=== PATIENT | male | born 1960 | race Caucasian/White ===

== ENCOUNTER → 2016-07-18 | Outpatient (CLI) | payer OTHER, BC ==
[2016-07-18 09:14] LABS: ALT 31 U/L (21-72); AST 23 U/L (17-59); Alkaline Phosphatase 55 U/L (38-126); Anion Gap 11 mmol/L; Blood Urea Nitrogen 19 mg/dL (9-20); Calcium 9.9 mg/dL (8.4-10.2); Carbon Dioxide 29 mmol/L (22-30); Chloride 101 mmol/L (98-107); Cholesterol 146 mg/dL (<200); Glucose 111 mg/dL (74-99); HDL Cholesterol 50 mg/dL (40-60); Non-African American GFR(MDRD) >60 (>60 ml/min/1.73 sqM); Potassium 5.2 mmol/L (3.5-5.1); Sodium 141 mmol/L (137-145); Total Bilirubin 0.9 mg/dL (0.2-1.3); Total Protein 7.8 g/dL (6.3-8.2); Triglycerides 93 mg/dL (<150)
== END | disposition home or self-care (01) ==
LOC: LABWHC1 08:10
PROVIDERS: ATTEND Internal Medicine Endocrinology, Diabetes & Metabolism
DX: E10.65 Type 1 diabetes mellitus with hyperglycemia (principal)
CPT/HCPCS: 36415; 80053; 80061; 82043

== ENCOUNTER 2016-08-01 00:05 | Emergency (ER) | payer OTHER, BC ==
--- NOTE | 2016-08-01 00:24 | ED ---
General Adult HPI - General Chief complaint: Altered Mental Status Stated complaint: HYPOGLYCEMIA Time Seen by Provider: 08/01/16 00:23 Source: patient, EMS, RN notes reviewed, old records reviewed Mode of arrival: EMS Limitations: no limitations - History of Present Illness Initial comments: This is a 55-year-old male to the ER for evaluation today. This patient presents for evaluation of altered mental status. Patient unable to give accurate history as to what is going on. History obtained from EMS and patient chart, as well as bystander. Patient does have history of diabetes and ER visits for hypoglycemia. Also states the C patient frequently for episodes of hypoglycemia. Patient is just not responding appropriately this time which she usually does after re-correction of sugar. Patient was found [facility]'s house by neighbor, unknown when symptoms started, at this time patient is a expressive phasic - Related Data Home Medications Medication Instructions Recorded Confirmed INSULIN LISPRO (humaLOG) [humaLOG] 0 units SQ TID 11/28/13 06/14/15 Insulin Glargine,Hum.rec.anlog 44 units SQ DAILY 11/28/13 06/14/15 [Lantus Solostar] Allergies Allergy/AdvReac Type Severity Reaction Status Date / Time No Known Allergies Allergy Verified 06/14/15 07:21 Review of Systems ROS Statement: Those systems with pertinent positive or pertinent negative responses have been documented in the HPI. ROS Other: All systems not noted in ROS Statement are negative. Past Medical History Past Medical History: Diabetes Mellitus History of Any Multi-Drug Resistant Organisms: None Reported Past Surgical History: Orthopedic Surgery Additional Past Surgical History / Comment(s): leg surgery Past Psychological History: No Psychological Hx Reported Smoking Status: Never smoker Past Alcohol Use History: Rare Past Drug Use History: None Reported General Exam - General Exam Comments Initial Comments: NIH of 6, expressive aphasia Limitations: no limitations General appearance: alert, in no apparent distress Head exam: Present: atraumatic, normocephalic, normal inspection Eye exam: Present: normal appearance, PERRL, EOMI. Absent: scleral icterus, conjunctival injection, periorbital swelling ENT exam: Present: normal exam, mucous membranes moist Neck exam: Present: normal inspection. Absent: tenderness, meningismus, lymphadenopathy Respiratory exam: Present: normal lung sounds bilaterally. Absent: respiratory distress, wheezes, rales, rhonchi, stridor Cardiovascular Exam: Present: normal rhythm, tachycardia, normal heart sounds. Absent: systolic murmur, diastolic murmur, rubs, gallop, clicks GI/Abdominal exam: Present: soft, normal bowel sounds. Absent: distended, tenderness, guarding, rebound, rigid Extremities exam: Present: normal inspection, full ROM, normal capillary refill. Absent: tenderness, pedal edema, joint swelling, calf tenderness Back exam: Present: normal inspection Neurological exam: Present: alert, oriented X3, CN II-XII intact Psychiatric exam: Present: normal affect, normal mood Skin exam: Present: warm, dry, intact, normal color. Absent: rash Course Vital Signs 08/01/16 08/01/16 00:06 01:30 Temperature 98.8 F Pulse Rate 105 H 108 H Respiratory 20 16 Rate Blood Pressure 184/86 170/79 O2 Sat by Pulse 97 98 Oximetry - Reevaluation(s) Reevaluation #1: 08/01/16 03:15 Patient having complete resolution of aphasia, no expressive aphasia, patient feels normal like to go home EKG Findings - EKG Comments: EKG Findings:: EKG shows sinus tachycardia rate 103, VA 134, QRS 88, QTC 424 Medical Decision Making - Medical Decision Making 55-year-old ER for evaluation of hypoglycemia, altered mental status. Upon resolution of her glycemia patient's symptoms are improved, patient alert and talking appropriately patient has any be discharged home and will be discharged home - Lab Data Result diagrams: 08/01/16 01:13 08/01/16 01:13 Lab Results 08/01/16 08/01/16 08/01/16 Range/Units 00:12 01:13 01:13 WBC 9.6 (3.8-10.6) k/uL RBC 4.39 (4.30-5.90) m/uL Hgb 14.8 (13.0-17.5) gm/dL Hct 44.3 (39.0-53.0) % MCV 101.0 H (80.0-100.0) fL MCH 33.8 (25.0-35.0) pg MCHC 33.5 (31.0-37.0) g/dL RDW 12.5 (11.5-15.5) % Plt Count 196 (150-450) k/uL Neutrophils % 82 % Lymphocytes % 10 % Monocytes % 6 % Eosinophils % 0 % Basophils % 0 % Neutrophils # 7.9 H (1.3-7.7) k/uL Lymphocytes # 0.9 L (1.0-4.8) k/uL Monocytes # 0.6 (0-1.0) k/uL Eosinophils # 0.0 (0-0.7) k/uL Basophils # 0.0 (0-0.2) k/uL PT 10.9 (9.0-12.0) sec INR 1.1 (<1.1) APTT 24.6 (22.0-30.0) sec Sodium (137-145) mmol/L Potassium (3.5-5.1) mmol/L Chloride (98-107) mmol/L Carbon Dioxide (22-30) mmol/L Anion Gap mmol/L BUN (9-20) mg/dL Creatinine (0.66-1.25) mg/dL Est GFR (MDRD) Af Amer (>60 ml/min/1.73 sqM) Est GFR (MDRD) Non-Af (>60 ml/min/1.73 sqM) Glucose (74-99) mg/dL POC Glucose (mg/dL) 188 H (75-99) mg/dL POC Glu Account Executive ID Claire Thrasher Calcium (8.4-10.2) mg/dL Phosphorus (2.5-4.5) mg/dL Magnesium (1.6-2.3) mg/dL Total Bilirubin (0.2-1.3) mg/dL AST (17-59) U/L ALT (21-72) U/L Alkaline Phosphatase (38-126) U/L Total Creatine Kinase (55-170) U/L CK-MB (CK-2) (0.0-2.4) ng/mL CK-MB (CK-2) Rel Index Troponin I (0.000-0.034) ng/mL Total Protein (6.3-8.2) g/dL Albumin (3.5-5.0) g/dL 08/01/16 08/01/16 08/01/16 Range/Units 01:13 01:13 01:16 WBC (3.8-10.6) k/uL RBC (4.30-5.90) m/uL Hgb (13.0-17.5) gm/dL Hct (39.0-53.0) % MCV (80.0-100.0) fL MCH (25.0-35.0) pg MCHC (31.0-37.0) g/dL RDW (11.5-15.5) % Plt Count (150-450) k/uL Neutrophils % % Lymphocytes % % Monocytes % % Eosinophils % % Basophils % % Neutrophils # (1.3-7.7) k/uL Lymphocytes # (1.0-4.8) k/uL Monocytes # (0-1.0) k/uL Eosinophils # (0-0.7) k/uL Basophils # (0-0.2) k/uL PT (9.0-12.0) sec INR (<1.1) APTT (22.0-30.0) sec Sodium 138 (137-145) mmol/L Potassium 4.9 (3.5-5.1) mmol/L Chloride 103 (98-107) mmol/L Carbon Dioxide 23 (22-30) mmol/L Anion Gap 12 mmol/L BUN 20 (9-20) mg/dL Creatinine 0.80 (0.66-1.25) mg/dL Est GFR (MDRD) Af Amer >60 (>60 ml/min/1.73 sqM) Est GFR (MDRD) Non-Af >60 (>60 ml/min/1.73 sqM) Glucose 201 H (74-99) mg/dL POC Glucose (mg/dL) 200 H (75-99) mg/dL POC Glu Account Executive ID Claire Thrasher Calcium 9.2 (8.4-10.2) mg/dL Phosphorus 2.8 (2.5-4.5) mg/dL Magnesium 1.8 (1.6-2.3) mg/dL Total Bilirubin 0.7 (0.2-1.3) mg/dL AST 31 (17-59) U/L ALT 35 (21-72) U/L Alkaline Phosphatase 54 (38-126) U/L Total Creatine Kinase 179 H (55-170) U/L CK-MB (CK-2) 2.1 (0.0-2.4) ng/mL CK-MB (CK-2) Rel Index 1.2 Troponin I <0.012 (0.000-0.034) ng/mL Total Protein 7.4 (6.3-8.2) g/dL Albumin 4.3 (3.5-5.0) g/dL 08/01/16 Range/Units 03:04 WBC (3.8-10.6) k/uL RBC (4.30-5.90) m/uL Hgb (13.0-17.5) gm/dL Hct (39.0-53.0) % MCV (80.0-100.0) fL MCH (25.0-35.0) pg MCHC (31.0-37.0) g/dL RDW (11.5-15.5) % Plt Count (150-450) k/uL Neutrophils % % Lymphocytes % % Monocytes % % Eosinophils % % Basophils % % Neutrophils # (1.3-7.7) k/uL Lymphocytes # (1.0-4.8) k/uL Monocytes # (0-1.0) k/uL Eosinophils # (0-0.7) k/uL Basophils # (0-0.2) k/uL PT (9.0-12.0) sec INR (<1.1) APTT (22.0-30.0) sec Sodium (137-145) mmol/L Potassium (3.5-5.1) mmol/L Chloride (98-107) mmol/L Carbon Dioxide (22-30) mmol/L Anion Gap mmol/L BUN (9-20) mg/dL Creatinine (0.66-1.25) mg/dL Est GFR (MDRD) Af Amer (>60 ml/min/1.73 sqM) Est GFR (MDRD) Non-Af (>60 ml/min/1.73 sqM) Glucose (74-99) mg/dL POC Glucose (mg/dL) 219 H (75-99) mg/dL POC Glu Account Executive ID Lucrecia Miller Calcium (8.4-10.2) mg/dL Phosphorus (2.5-4.5) mg/dL Magnesium (1.6-2.3) mg/dL Total Bilirubin (0.2-1.3) mg/dL AST (17-59) U/L ALT (21-72) U/L Alkaline Phosphatase (38-126) U/L Total Creatine Kinase (55-170) U/L CK-MB (CK-2) (0.0-2.4) ng/mL CK-MB (CK-2) Rel Index Troponin I (0.000-0.034) ng/mL Total Protein (6.3-8.2) g/dL Albumin (3.5-5.0) g/dL - Radiology Data Radiology results: report reviewed (CT brain CT head neck, chest x-ray negative for acute disease), image reviewed Disposition Clinical Impression: Altered mental status, Hypoglycemia Disposition: HOME SELF-CARE Condition: Good Instructions: Altered Mental Status (ED), Hypoglycemia in a Person with Diabetes (ED) Referrals: None,Stated [Primary Care Provider] - 1-2 days
[2016-08-01 00:32] LABS: Glucose,Whole Blood 188 mg/dL (75-99)
[2016-08-01] MEDS ORDERED: SODIUM CHLORIDE 0.9% 500 ML IV STA (00:37)
[2016-08-01] MEDS ORDERED: SODIUM CHLORIDE 0.9% 1,000 ML IV STA (00:37)
[2016-08-01] MEDS ORDERED: RX INFO: IV CONTRAST WAS GIVEN 1 EACH MISC MISCELLANE PRN (00:48)
[2016-08-01 01:19] LABS: Glucose,Whole Blood 200 mg/dL (75-99)
[2016-08-01 01:30] LABS: Basophils % (A) 0 %; CH 33.8; CHCM 33.6; Eosinophils % (A) 0 %; HCT 44.3 % (39.0-53.0); HDW 2.36; HGB 14.8 gm/dL (13.0-17.5); Luc # (Auto) 0.12; Luc % (Auto) 1; Lymphocytes # (A) 0.9 k/uL (1.0-4.8); Lymphocytes % (A) 10 %; MCH 33.8 pg (25.0-35.0); MCHC 33.5 g/dL (31.0-37.0); Mean Platelet Volume 6.9; Monocytes # (A) 0.6 k/uL (0-1.0); Monocytes % (A) 6 %; Neutrophils # (A) 7.9 k/uL (1.3-7.7); Neutrophils % (A) 82 %; RBC 4.39 m/uL (4.30-5.90); RDW 12.5 % (11.5-15.5); WBC 9.6 k/uL (3.8-10.6); WBC (Perox) 10.01
[2016-08-01 01:43] LABS: INR 1.1 (<1.1); Partial Thromboplastin Time 24.6 sec (22.0-30.0); Prothrombin Time 10.9 sec (9.0-12.0)
[2016-08-01 01:48] LABS: ALT 35 U/L (21-72); AST 31 U/L (17-59); Alkaline Phosphatase 54 U/L (38-126); Anion Gap 12 mmol/L; Blood Urea Nitrogen 20 mg/dL (9-20); Calcium 9.2 mg/dL (8.4-10.2); Carbon Dioxide 23 mmol/L (22-30); Chloride 103 mmol/L (98-107); Glucose 201 mg/dL (74-99); Magnesium 1.8 mg/dL (1.6-2.3); Non-African American GFR(MDRD) >60 (>60 ml/min/1.73 sqM); Phosphorous 2.8 mg/dL (2.5-4.5); Potassium 4.9 mmol/L (3.5-5.1); Sodium 138 mmol/L (137-145); Total Bilirubin 0.7 mg/dL (0.2-1.3); Total Protein 7.4 g/dL (6.3-8.2)
[2016-08-01 01:53] LABS: Creatine Kinase 179 U/L (55-170)
[2016-08-01 02:06] LABS: Creatine Kinase MB 2.1 ng/mL (0.0-2.4); Troponin I <0.012 ng/mL (0.000-0.034)
--- NOTE | 2016-08-01 02:37 | CT ---
EXAM: CT Head Without Intravenous Contrast. CLINICAL HISTORY: Reason: weakness TECHNIQUE: Axial computed tomography images of the head/brain without intravenous contrast. CTDI is 57.40 mGy and DLP is 1167.70 mGy-cm This CT exam was performed using one or more of the following dose reduction techniques: automated exposure control, adjustment of the mA and/or kV according to patient size, and/or use of iterative reconstruction technique. COMPARISON: No relevant prior studies available. FINDINGS: Brain: Mild generalized volume loss. No hemorrhage. No significant white matter disease. No edema. Ventricles: Unremarkable. No ventriculomegaly. Bones/joints: No acute fracture. Soft tissues: Unremarkable. Sinuses: Incompletely imaged complete opacification of the right maxillary sinus with associated bony sclerosis and and some extension into the right nasal cavity, along with adjacent right ethmoid and frontal sinus disease. Mastoid air cells: Unremarkable as visualized. No mastoid effusion. IMPRESSION: 1. No acute intracranial abnormality is seen to account for the patient's weakness. Note that early infarct may initially be inapparent by CT. 2. Diffuse right-sided paranasal sinus disease. This exam could serve as baseline for follow-up after treatment to assess for clearing.
--- NOTE | 2016-08-01 02:51 | CT ---
EXAM: CT Angiography Head With Intravenous Contrast. CLINICAL HISTORY: Reason: Pain TECHNIQUE: Axial computed tomographic angiography images of the head with intravenous contrast using CT angiography protocol. Combined CTDI is 177. 10 mGy and DLP is 420.30 mGy-cm for CTA head and neck. This CT exam was performed using one or more of the following dose reduction techniques: automated exposure control, adjustment of the mA and/or kV according to patient size, and/or use of iterative reconstruction technique. MIP reconstructed images were created and reviewed. COMPARISON: Current head CT, dictated separately. FINDINGS: Right internal carotid artery: Intracranial segment is patent with no significant stenosis. No aneurysm. Right anterior cerebral artery: No occlusion or significant stenosis. No aneurysm. Right middle cerebral artery: No occlusion or significant stenosis. No aneurysm. Right posterior cerebral artery: No occlusion or significant stenosis. No aneurysm. Right vertebral artery: Unremarkable as visualized. Left internal carotid artery: Intracranial segment is patent with no significant stenosis. No aneurysm. Left anterior cerebral artery: No occlusion or significant stenosis. No aneurysm. Left middle cerebral artery: No occlusion or significant stenosis. No aneurysm. Left posterior cerebral artery: No occlusion or significant stenosis. No aneurysm. Left vertebral artery: Unremarkable as visualized. Basilar artery: No occlusion or significant stenosis. No aneurysm. Sinuses: Near complete opacification of the right maxillary sinus, with adjacent opacity in the right nasal cavity, several right ethmoid air cells and right frontal sinus. There is some associated right maxillary bony sclerosis suggesting a component of chronicity. Small mucous retention cyst or polyp is seen in the inferior left maxillary sinus. Adjacent to this there is periapical lucency surrounding the roots of the 2 posterior most right upper molars. IMPRESSION: 1. No evidence of focal flow-limiting stenosis or aneurysm is seen. Note that small less than 3 mm or thrombosed aneurysms may be missed by this technique. 2. Diffuse right-sided paranasal sinus disease, of indeterminate chronicity and that may in part be chronic. If no priors, would recommend follow-up after treatment to reassess for clearing. 3. Adjacent right upper dental caries. EXAM: CT Angiography Neck With Intravenous Contrast. CLINICAL HISTORY: Reason: Pain TECHNIQUE: Axial computed tomographic angiography images of the neck with intravenous contrast using CT angiography protocol. Combined CTDI is 177. 10 mGy and DLP is 420.30 mGy-cm for CTA head and neck. This CT exam was performed using one or more of the following dose reduction techniques: automated exposure control, adjustment of the mA and/or kV according to patient size, and/or use of iterative reconstruction technique. MIP reconstructed images were created and reviewed. COMPARISON: No relevant prior studies available. FINDINGS: VASCULATURE: Right common carotid artery: No significant stenosis. No dissection or occlusion. Right internal carotid artery: Extracranial segment is patent with no significant stenosis. No dissection or occlusion. Right external carotid artery: Unremarkable. No occlusion. Right vertebral artery: No significant stenosis. No dissection or occlusion. Mildly hypoplastic compared to left. Left common carotid artery: No significant stenosis. No dissection or occlusion. Left internal carotid artery: Mild primarily calcified plaque within the left carotid bulb and proximal ICA without associated stenosis. Of incidental note is a loop along the course of the distal extracranial left ICA just below the skull base level. No dissection or occlusion. Left external carotid artery: Unremarkable. No occlusion. Left vertebral artery: No significant stenosis. No dissection or occlusion. NECK: Bones/joints: Multilevel cervical spondylosis, with multilevel foraminal stenosis that is greatest at C5-6, to a lesser degree at C4-5 and C6-7. No acute fracture or listhesis. Soft tissues: Heterogeneous multinodular thyroid gland with asymmetric enlargement of the left lobe were there is a dominant nodule on the order of 2.8 x 2.4 cm. CAROTID STENOSIS REFERENCE USING NASCET CRITERIA: % ICA stenosis = (1 - narrowest ICA diameter/diameter of distal cervical ICA) x 100. Mild - <50% stenosis. Moderate - 50-69% stenosis. Severe - 70-94% stenosis. Near occlusion - 95-99% stenosis. Occluded - 100% stenosis. IMPRESSION: 1. No evidence of hemodynamically significant flow limiting extracranial carotid or vertebral artery stenosis. 2. Heterogeneous multinodular thyroid gland with dominant 2.8 cm left lobe nodule. If not previously known, recommend elective ultrasound correlation, including for possible biopsy.
--- NOTE | 2016-08-01 02:53 | XR ---
EXAM: XR Chest, 2 Views. CLINICAL HISTORY: Reason: Weakness TECHNIQUE: Frontal and lateral views of the chest. COMPARISON: 06/14/15. FINDINGS: Lungs: Stable. No consolidation. Pleural space: Stable. No pleural effusion or pneumothorax. Heart: Stable. No cardiomegaly. Mediastinum: Mediastinal contours are stable including slight aortic ectasia. Bones/joints: The bones are stable including degenerative changes within both shoulders. Tubes, lines and devices: Several EKG wires and leads overlie the chest. IMPRESSION: No significant change, no new acute process seen within the chest.
[2016-08-01 03:06] LABS: Glucose,Whole Blood 219 mg/dL (75-99)
[2016-08-01 04:18] VITALS: BP 171/79; PULSE 113; RESP 18; TEMP 100
== END 2016-08-01 04:20 | disposition home or self-care (01) ==
LOC: EC 00:05
DX: E11.649 Type 2 diabetes mellitus with hypoglycemia without coma (principal); R41.82 Altered mental status, unspecified; R47.01 Aphasia; R00.0 Tachycardia, unspecified; Z79.4 Long term (current) use of insulin
CPT/HCPCS: 99285; 36415; 93005; 80053; 82550; 82553; 83735; 84100; 84484; 85025; 85610; 85730; 87040; 71020; 70496; 70450; 70498; Q9967

== ENCOUNTER → 2019-12-19 | Outpatient (CLI) | payer OTHER, BC ==
[2019-12-19 17:31] LABS: Urine Creatinine 111.2 mg/dL
[2019-12-19 18:15] LABS: Hemoglobin A1C 5.4 % (4.0-6.0)
[2019-12-19 19:07] LABS: African American GFR (CKD) 93.7 (60.0-200.0); Albumin 4.4 g/dL (3.80-4.90); Albumin/Globulin Ratio 1.69 (1.60-3.17); Anion Gap 8.7 mmol/L (4.00-12.00); Calcium 9.5 mg/dL (8.7-10.3); Carbon Dioxide 25.3 mmol/L (21.6-31.8); Chol/HDL Ratio 2.92; Globulin 2.6 g/dL (1.6-3.3); LDL Cholesterol,Calculated 83.8 mg/dL (0.0-131.0); Non-African American GFR(CKD) 80.9 (60.0-200.0); Potassium 4.1 mmol/L (3.5-5.5); Total Bilirubin 0.5 mg/dL (0.3-1.2); VLDL Calculation 12.2 mg/dL (5.00-40.00)
== END | disposition home or self-care (01) ==
LOC: LABWHC1 09:12
PROVIDERS: ATTEND Internal Medicine Endocrinology, Diabetes & Metabolism
DX: E10.65 Type 1 diabetes mellitus with hyperglycemia (principal); R53.83 Other fatigue
CPT/HCPCS: 36415; 80053; 80061; 82043; 82533; 82570; 83036; 84403; 84443

== ENCOUNTER → 2023-05-22 | Outpatient (CLI) | payer OTHER ==
[2023-05-22 23:07] LABS: VLDL Calculation 12.02 mg/dL (5.00-40.00)
[2023-05-22 23:08] LABS: ALT 15 U/L (10-49); AST 14 U/L (14-35); Albumin 4.1 g/dL (3.8-4.9); Albumin/Globulin Ratio 1.28 Ratio (1.60-3.17); Alkaline Phosphatase 92 U/L (41-126); Blood Urea Nitrogen 17.6 mg/dL (9.0-27.0); Calcium 9.7 mg/dL (8.7-10.3); Carbon Dioxide 26.8 mmol/L (21.6-31.8); Chloride 104 mmol/L (96-109); Globulin 3.2 g/dL (1.6-3.3); Glucose 55 mg/dL (70-110); LDL Cholesterol,Calculated 64.8 mg/dL (0.0-131.0); Potassium 4.8 mmol/L (3.5-5.5); Sodium 142 mmol/L (135-145); Total Bilirubin 0.4 mg/dL (0.3-1.2); Total Protein 7.3 g/dL (6.2-8.2)
[2023-05-22 23:25] LABS: Microalbumin Creatinine Ratio <27 mg/g Cr (0-30); Urine Creatinine 43.8 mg/dL (39.0-259.0)
== END | disposition home or self-care (01) ==
LOC: LABWHC1 09:40
PROVIDERS: ATTEND Internal Medicine Endocrinology, Diabetes & Metabolism
DX: E10.65 Type 1 diabetes mellitus with hyperglycemia (principal)
CPT/HCPCS: 36415; 80053; 80061; 82043; 82570; 83036; 84443

== ENCOUNTER → 2023-10-01 | Outpatient (CLI) | payer BC ==
[2023-10-02 04:00] LABS: MCH 31.2 pg (27.0-32.0); MCHC 31.8 g/dL (32.0-37.0); Mean Platelet Volume 10.5 FL (9.5-12.2); NRBC Per 100 WBC 0 X 10*3/uL (0.00-0.01); Platelet Count 243 X 10*3/uL (140-440); RBC 4.49 X 10*6/uL (4.40-5.60); RDW 13.3 % (11.5-14.5)
[2023-10-02 04:30] LABS: Erythrocyte Sedimentation Rate 17 mm/Hr (0-20)
== END | disposition home or self-care (01) ==
LOC: LABWHC1 15:53
PROVIDERS: ATTEND Orthopaedic Surgery
DX: S72.462 Displaced supracondylar fracture with intracondylar extension of lower end of left femur (principal); X58.XXXA Exposure to other specified factors, initial encounter
CPT/HCPCS: 36415; 83036; 85027; 85652; 86140

== ENCOUNTER → 2024-07-15 | Outpatient (CLI) | payer MEDICARE ==
[2024-07-15 13:54] LABS: Microalbumin Creatinine Ratio <19 mg/g Cr (0-30)
[2024-07-15 13:59] LABS: BUN/Creat Ratio 15.45 Ratio (12.00-20.00); Chol/HDL Ratio 2.79 Ratio; Glucose 153 mg/dL (70-110); LDL Cholesterol,Calculated 65.8 mg/dL (0.0-131.0); VLDL Calculation 19.64 mg/dL (5.00-40.00)
[2024-07-15 14:00] LABS: ALT 20 U/L (10-49); AST 21 U/L (14-35); Albumin 4.3 g/dL (3.8-4.9); Albumin/Globulin Ratio 1.39 Ratio (1.60-3.17); Alkaline Phosphatase 75 U/L (41-126); Calcium 9.8 mg/dL (8.7-10.3); Carbon Dioxide 24.7 mmol/L (21.6-31.8); Chloride 98 mmol/L (96-109); Globulin 3.1 g/dL (1.6-3.3); Potassium 4.9 mmol/L (3.5-5.5); Sodium 135 mmol/L (135-145); Total Bilirubin 0.4 mg/dL (0.3-1.2); Total Protein 7.4 g/dL (6.2-8.2)
== END | disposition home or self-care (01) ==
LOC: LABWHC1 08:49
PROVIDERS: ATTEND Internal Medicine Endocrinology, Diabetes & Metabolism
DX: E10.65 Type 1 diabetes mellitus with hyperglycemia (principal)
CPT/HCPCS: 36415; 80053; 80061; 82043; 82570; 83036; 84443